=== PATIENT | male | born 1960 | race Caucasian/White ===

== ENCOUNTER → 2022-02-22 06:54 | Outpatient (CLI) | payer BC, SELFPAY ==
[2022-02-22 07:46] LABS: Add Manual Diff / Slide Review NO; Basophils Absolute Auto 0 /uL (0-100); Basophils Percent Auto 0.5 % (0-2); Eosinophils Absolute Auto 100 /uL (0-450); Eosinophils Percent Auto 1.7 % (2-4); Hematocrit 42.9 % (41-53); Hemoglobin 14.9 g/dL (13.5-17.5); Lymphocytes Absolute Auto 3000 /uL (1100-4500); Lymphocytes Percent Auto 45.6 % (25-40); Mean Corpuscular HGB Conc 34.8 % (30-36); Mean Corpuscular Hemoglobin 32.3 PG (26-34); Mean Corpuscular Volume 92.8 fL (80-100); Monocytes Absolute Auto 500 /uL (0-900); Monocytes Percent Auto 7.6 % (3-14); Neutrophils Absolute Auto 2900 /uL (1500-7000); Neutrophils Percent Auto 44.6 % (50-75); Platelet Count 189 X10^3/uL (150-400); Red Blood Cell Count 4.62 X10^6/uL (4.5-5.9); Red Cell Distribution Width 13.1 % (11.6-14.8); White Blood Cell Count 6.5 X10^3/uL (4.5-11.0)
[2022-02-22 09:30] LABS: HEMOLYSIS < 15 (0-50)
[2022-02-22 09:40] LABS: Alanine Aminotransferase 25 IU/L (<50); Albumin 4.2 g/dL (3.5-5.0); Albumin Globulin Ratio 1.6 (1.0-2.8); Alkaline Phosphatase 43 U/L (38-126); Aspartate Aminotransferase 29 IU/L (17-59); Bilirubin Total 0.6 mg/dL (0.2-1.3); Blood Urea Nitrogen 23 mg/dL (9-20); Calcium 8.9 mg/dL (8.4-10.2); Carbon Dioxide 25 mmol/L (22-32); Chloride 104 mmol/L (98-107); Cholesterol 178 mg/dL (140-199); Estimated Glomerular Filt Rate > 60 mL/min (>60); Globulin 2.6 g/dL (1.7-4.1); Glucose 94 mg/dL (80-110); HDL Cholesterol 56 mg/dL (40-60); LDL Cholesterol Calculated 110 mg/dL (<100); Potassium 4.5 mmol/L (3.4-5.1); Sodium 138 mmol/L (137-145); Total Protein 6.8 g/dL (6.3-8.2); Triglycerides 59 mg/dL (35-150)
[2022-02-22 10:04] LABS: Prostate Specific Antigen 5.46 ng/mL (0.10-4.00)
== END ==
PROVIDERS: PCP Family Medicine; Referring Provider Specialist; Visit Provider Specialist
DX: R97.20 Elevated prostate specific antigen [PSA] (principal); I10 Essential (primary) hypertension; E78.5 Hyperlipidemia, unspecified; E78.2 Mixed hyperlipidemia
CPT/HCPCS: 36415; 80053; 80061; 84153; 85025

== ENCOUNTER → 2022-04-25 11:54 | Outpatient (CLI) | payer BC, SELFPAY ==
[2022-04-25 14:00] LABS: Prostate Specific Antigen 4.48 ng/mL (0.10-4.00)
== END ==
PROVIDERS: PCP Family Medicine; Referring Provider Specialist; Visit Provider Specialist
DX: R97.20 Elevated prostate specific antigen [PSA] (principal)
CPT/HCPCS: 36415; 84153

== ENCOUNTER → 2022-06-01 07:02 | Outpatient (CLI) | payer BC, SELFPAY ==
[2022-06-02 07:19] LABS: PSA Free % 27.1 % (.); PSA, Total 4.8 ng/mL (0.0-4.0)
== END ==
PROVIDERS: PCP Family Medicine; Referring Provider Specialist; Visit Provider Specialist
DX: R97.20 Elevated prostate specific antigen [PSA] (principal)
CPT/HCPCS: 36415; 84153; 84154

== ENCOUNTER → 2022-10-31 07:24 | Outpatient (CLI) | payer BC, SELFPAY ==
[2022-10-31 08:39] LABS: Alanine Aminotransferase 22 IU/L (<50); Albumin 4.1 g/dL (3.5-5.0); Albumin Globulin Ratio 1.6 (1.0-2.8); Alkaline Phosphatase 40 U/L (38-126); Aspartate Aminotransferase 22 IU/L (17-59); BUN Creatinine Ratio 15.7 (6-22); Bilirubin Total 0.7 mg/dL (0.2-1.3); Blood Urea Nitrogen 14 mg/dL (9-20); Calcium 9.3 mg/dL (8.4-10.2); Carbon Dioxide 29 mmol/L (22-32); Chloride 102 mmol/L (98-107); Cholesterol 150 mg/dL (140-199); Estimated Glomerular Filt Rate > 60 mL/min (>60); Globulin 2.6 g/dL (1.7-4.1); Glucose 95 mg/dL (80-110); HDL Cholesterol 49 mg/dL (40-60); HEMOLYSIS < 15 (0-50); LDL Cholesterol Calculated 90 mg/dL (<100); Potassium 4.6 mmol/L (3.4-5.1); Sodium 138 mmol/L (137-145); Total Protein 6.7 g/dL (6.3-8.2); Triglycerides 54 mg/dL (35-150)
[2022-10-31 09:03] LABS: Prostate Specific Antigen Scrn 4.41 ng/mL (0.1-4.0)
== END ==
PROVIDERS: PCP Family Medicine; Referring Provider Family Medicine; Visit Provider Family Medicine
DX: E78.2 Mixed hyperlipidemia (principal); R97.20 Elevated prostate specific antigen [PSA]; I10 Essential (primary) hypertension; Z12.5 Encounter for screening for malignant neoplasm of prostate
CPT/HCPCS: 36415; 80053; 80061; G0103

== ENCOUNTER → 2023-02-27 07:18 | Outpatient (CLI) | payer BC, SELFPAY ==
[2023-02-28 10:38] LABS: PSA Free % 28.3 % (.); PSA, Total 3.6 ng/mL (0.0-4.0)
== END ==
PROVIDERS: PCP Family Medicine; Referring Provider Specialist; Visit Provider Specialist
DX: R97.20 Elevated prostate specific antigen [PSA] (principal)
CPT/HCPCS: 36415; 84153; 84154

== ENCOUNTER → 2023-03-21 15:33 | Outpatient (CLI) | payer BC, SELFPAY | PROVIDERS: PCP Family Medicine; Visit Provider Specialist | DX: N40.1 Benign prostatic hyperplasia with lower urinary tract symptoms (principal); N13.8 Other obstructive and reflux uropathy; Z87.898 Personal history of other specified conditions | CPT/HCPCS: 51798; 81002; 87086; 99213 ==

== ENCOUNTER → 2023-09-04 07:05 | Outpatient (CLI) | payer MEDICARE, SELFPAY ==
[2023-09-06 21:49] LABS: PSA Free % 29.6 % (.); PSA, Total 4.5 ng/mL (0.0-4.0)
== END ==
PROVIDERS: PCP Family Medicine; Referring Provider Specialist; Visit Provider Specialist
DX: R97.20 Elevated prostate specific antigen [PSA] (principal)
CPT/HCPCS: 36415; 84153; 84154

== ENCOUNTER → 2023-12-03 06:50 | Outpatient (CLI) | payer MEDICARE, SELFPAY ==
--- NOTE | 2023-12-03 06:50 | DI.ECHO.S_ITS ---
[facility] : : [address] : : [place] : : [id number] : : Phone: [phone] Echocardiogram Report + + :Name: MERRILL LOPEZ Study Date: 12/03/2023 Height: 71 in : :Hospital ReadingLocation: Weight: 220 lb : : Gender: Male BSA: 2.2 m2 : :: 1960 Age: 63 yrs BP: 142/75 mmHg: :Reason For Study: ATHERSCLEROTIC HEART DISEASE : :Ordering Physician: ANDREEA STORM Performed By: Tyson Madrid : :Referring: ANDREEA STORM : + + Interpretation Summary 1. Low normal left ventricular systolic function with ejection fraction of 50 to 55% and no segmental wall motion abnormalities. No left ventricular hypertrophy is identified. Normal diastolic function present. 2. The right ventricular contractility is normal. 3. All cardiac chambers appear to be of normal size. 4. No significant valvular abnormalities are appreciated. 5. No obvious intracardiac shunts noted. 6. No obvious intracardiac masses nor thrombi appreciated. 7. No hemodynamically significant pericardial effusion identified. Conclusion: Low normal left ventricular function with no significant structural abnormalities. Procedure: A two-dimensional transthoracic echocardiogram with color flow and Doppler was performed. The study quality was technically adequate. There is no prior echocardiogram noted for this patient. The patient was in sinus rhythm with heart rates between 52-63 bpm during the exam. Left Ventricle: The left ventricle is normal in size and wall thickness. The ejection fraction is estimated to be 50-55%. Right Ventricle: The right ventricle is grossly normal size. The right ventricular systolic function is normal. Atria: The left atrium grossly appears normal in size. Right atrial size is normal. The interatrial septum grossly appears intact with no obvious evidence for an atrial septal defect. Mitral Valve: The mitral valve is normal in structure and function. There is no mitral valve stenosis. There has been no significant change since the previous study. Aortic Valve: The aortic valve is trileaflet. There is no aortic valve stenosis. No aortic regurgitation is present. Tricuspid Valve: The tricuspid valve is normal in structure and function. There is no tricuspid stenosis. There is trace tricuspid regurgitation. The right ventricular systolic pressure is estimated to be at least 28 mmHg based on an estimated right atrial pressure of 3 mm Hg. Pulmonic Valve: The pulmonic valve is not well seen, but is grossly normal. There is no pulmonic valvular stenosis. There is trace pulmonic regurgitation. Great Vessels: The aortic root is normal size. The dimensions of the ascending aorta are normal. The IVC is of normal diameter and collapses greater than 50% with a sniff. This suggests a low right atrial pressure of 3 mm Hg. Pericardium/ Pleura There is no pericardial effusion. There is no pleural effusion. MMode/2D Measurements & Calculations LVIDd: 5.8 cm LVOT diam: 2.5 cm LVIDs: 4.2 cm Ao root diam: 3.2 cm FS: 27.9 % asc Aorta Diam: 3.6 cm IVSd: 1.0 cm Ao Arch Diam (Prox Trans): 3.0 cm LVPWd: 0.87 cm LV richardson. diameter/BSA (cm/m^2): 2.6 LV sys. diameter/BSA (cm/m^2): 1.9 LA A2 area: 17.9 cm2 RA long axis: 5.1 cm LA A4 area: 23.0 cm2 RA area: 17.8 cm2 LA length (vol): 5.6 cm RA vol: 52.3 ml LA vol: 61.9 ml RA : 23.8 ml/m2 LA vol index: 28.2 ml/m2 IVC diam: 1.9 cm RVD1 (basal): 4.3 cm RVD2 (mid): 3.7 cm TAPSE: 3.2 cm Doppler Measurements & Calculations Ao V2 max: 139.9 cm/sec LVOT Max Dex: 94.2 cm/sec Ao V2 mean: 95.8 cm/sec LV V1 max P.6 mmHg Ao max P.8 mmHg LV V1 VTI: 23.2 cm Ao mean P.2 mmHg CHAPINCITO(I,D): 3.5 cm2 Ao V2 VTI: 32.1 cm CHAPINCITO(V,D): 3.3 cm2 sev ratio: 0.72 CHAPINCITO indexed to BSA (cm^2/m^2): 1.6 MV E max dex: 78.6 cm/sec TR max dex: 253.9 cm/sec MV A max dex: 72.0 cm/sec TR max P.8 mmHg MV E/A: 1.1 PA V2 max: 90.8 cm/sec Med Peak E' Dex: 8.6 cm/sec PA V2 mean: 63.6 cm/sec E/E' med: 9.1 PA mean P.8 mmHg Lat Peak E' Dex: 11.3 cm/sec PA pr(Accel): 32.8 mmHg E/E' lat: 6.9 E/e' average: 8.0 MV dec time: 0.17 sec SV(LVOT): 113.6 ml Reading Physician:
== END ==
LOC: ECHO 06:50
PROVIDERS: PCP Family Medicine; Referring Provider Internal Medicine; Visit Provider Internal Medicine
DX: I25.118 Atherosclerotic heart disease of native coronary artery with other forms of angina pectoris (principal)
CPT/HCPCS: 93306

== ENCOUNTER 2024-02-06 07:42 | Emergency (ER) | payer MEDICARE, SELFPAY ==
[2024-02-06 07:55] VITALS: BP 145/78; PULSE 63; RESP 16; TEMP 36.8; O2SAT 96; BMI 30.7
--- NOTE | 2024-02-06 07:58 | ED.BACK ---
HPI - Back Pain/Injury General Chief Complaint: Back Pain/Injury Stated Complaint: per pt internal pain Time Seen by Provider: 02/06/24 07:53 Source: patient History of Present Illness HPI Narrative: Patient 63-year-old male history of remote history of leukemia hypertension hyperlipidemia presenting today with right flank pain. He reports it has been there for about a week. He denies any sort of injury. He feels like it is deep nonradiating. He denies any pain to his leg or abdomen. No nausea or vomiting. Reports it is in his kidney area. Denies any hematuria or painful frequent urination. Related Data Previous Rx's Medication Instructions Recorded tamsulosin 0.4 mg capsule 0.4 mg PO BEDTIME #90 caps 03/02/23 amlodipine 5 mg-benazepril 20 mg 1 cap PO DAILY #90 caps 04/19/23 capsule atorvastatin 40 mg tablet 40 mg PO BEDTIME #90 tabs 09/07/23 nitroglycerin 0.4 mg sublingual 0.4 mg sublingual Q5M PRN chest 09/07/23 tablet pain #20 tabs tamsulosin 0.4 mg capsule 0.4 mg PO BEDTIME #90 caps 10/24/23 Allergies Allergy/AdvReac Type Severity Reaction Status Date / Time No Known Drug Allergies Allergy Verified 02/06/24 08:00 Patient History Medical History Stable angina pectoris History of elevated PSA BPH w urinary obs/LUTS Hyperlipidemia Carpal tunnel syndrome (~2005) Hypertension (~2002) Leukemia (~2000) Surgical History Anesthesia History of knee replacement (~2019) History of shoulder replacement (~2018) History of knee replacement (~2007) Family History Father History of heart disease Hyperlipidemia Hypertension Mother History of heart disease Social History marital status: household members: spouse occupational status: other leisure activities: exercise Smoking Status: Never smoker alcohol intake: current eating out: 1-3 times/week Type(s) of exercise: walking Smoking Status: Never smoker alcohol intake frequency: a few times a month Substance Use Type: does not use Exam Initial Vital Signs Initial Vital Signs: Vital Signs Temperature 98.3 F 02/06/24 07:55 Pulse Rate 63 02/06/24 07:55 Respiratory Rate 16 02/06/24 07:55 Blood Pressure 145/78 H 02/06/24 07:55 Pulse Oximetry 96 02/06/24 07:55 Oxygen Delivery Method Room Air 02/06/24 07:55 GENERAL: Well-appearing, well-nourished and in no acute distress. HEENT: Head atraumatic,EOMI, pupils reactive, face symmetric, moist mucous membranes CARDIOVASCULAR: Regular rate and rhythm without murmurs, rubs or gallops. RESPIRATORY: Breath sounds equal bilaterally, no wheezes rales or rhonchi. ABDOMEN: Soft, nontender. Normoactive bowel sounds all 4 quadrants. No guarding or rebound. : Mild right CVA tenderness EXTREMITIES: Normal range of motion, no clubbing or edema. Neurovascularly intact NEUROLOGICAL: Alert and oriented x4.Normal gait and speech. SKIN: Warm, dry, no laceration, no petechiae, no rashes or lesions. Course Orders Ordered: ED Orders 02/06/24 07:55 Complete Blood Count AUTO DIFF Stat Comprehensive Metabolic Panel Stat Lipase Stat 02/06/24 09:00 CT kidney ureter bladder (KUB) Stat Vital Signs Vital signs: Vital Signs - 8 hr 02/06/24 07:55 02/06/24 09:01 Temperature 98.3 F Pulse Rate 63 54 L Respiratory Rate 16 16 Blood Pressure 145/78 H 138/82 Pulse Oximetry 96 98 Oxygen Delivery Method Room Air Room Air MDM - Back Pain/Injury Lab Data 02/06/24 07:55 02/06/24 07:55 Labs: Lab Results 02/06/24 Range/Units 07:55 WBC 7.7 (4.5-11.0) X10^3/uL RBC 4.51 (4.5-5.9) X10^6/uL Hgb 14.7 (13.5-17.5) g/dL Hct 42.8 (41-53) % MCV 94.8 (80-100) fL MCH 32.5 (26-34) PG MCHC 34.2 (30-36) % RDW 13.0 (11.6-14.8) % Plt Count 189 (150-400) X10^3/uL Neut % (Auto) 46.9 L (50-75) % Lymph % (Auto) 42.9 H (25-40) % Casey % (Auto) 7.6 (3-14) % Eos % (Auto) 2.1 (2-4) % Baso % (Auto) 0.5 (0-2) % Neut # (Auto) 3600 (2224-9795) /uL Lymph # (Auto) 3300 (2377-0052) /uL Casey # (Auto) 600 (0-900) /uL Eos # (Auto) 200 (0-450) /uL Baso # (Auto) 0 (0-100) /uL Sodium 138 (137-145) mmol/L Potassium 4.3 (3.4-5.1) mmol/L Chloride 106 (98-107) mmol/L Carbon Dioxide 28 (22-32) mmol/L BUN 22 H (9-20) mg/dL Creatinine 0.95 (0.66-1.25) mg/dL Estimated GFR > 60 (>60) mL/min BUN/Creatinine Ratio 23.2 H (6-22) Glucose 105 (80-110) mg/dL Calcium 9.1 (8.4-10.2) mg/dL Total Bilirubin 0.8 (0.2-1.3) mg/dL AST 26 (17-59) IU/L ALT 21 (<50) IU/L Alkaline Phosphatase 43 (38-126) U/L Total Protein 7.3 (6.3-8.2) g/dL Albumin 4.4 (3.5-5.0) g/dL Globulin 2.9 (1.7-4.1) g/dL Albumin/Globulin Ratio 1.5 (1.0-2.8) Lipase 106 (23-300) U/L Urine Dip Bedside Urine Glucose Negative Bedside Urine Bilirubin - Negative Bedside Urine Ketone - Negative Urine Specific Corona 1.010 Bedside Urine Occult Blood - Negative Bedside Urine pH 6.0 Bedside Urine Protein - Negative Bedside Urine Urobilinogen - Negative Bedside Urine Nitrite - Negative Bedside Urine Leukocytes - Negative Esterase Imaging Data CT scan - abdomen/pelvis: Radiologist's Impression: PROCEDURE: CT KIDNEY URETER BLADDER (KUB) INDICATIONS: left flank pain TECHNIQUE: Axial sections were acquired from the lung bases to the pubic symphysis. Coronal and sagittal reformats were performed. For radiation dose reduction, the following was used: automated exposure control, adjustment of mA and/or kV according to patient size. COMPARISON: [facility], CT, KIDNEY/ URETER/BLADDER, 01/15/2015, 9:03. FINDINGS: Image quality: Diagnostic. Lower Chest: No significant findings. URINARY: Right Kidney: No stones or hydronephrosis. Right Ureter: No hydroureter. Left Kidney: No stones or hydronephrosis. Left Ureter: No hydroureter. Bladder: Mild diffuse bladder wall thickening is seen, no discrete bladder wall mass. No calcified bladder stones. ABDOMEN: Liver: No contour-deforming solid mass. There are suggestion of multiple hepatic cysts measures up to 4.3 x 4.4 cm in size in left hepatic lobe and 7.5 Hounsfield unit in density. Gallbladder: No radiopaque gallstones or wall thickening. Biliary ducts: No biliary dilation. Pancreas: No ductal dilation. Spleen: Size is within normal limits. Adrenal Glands: No adrenal nodules. Stomach and Bowel: There is no bowel obstruction. No abnormal bowel wall thickening or mesenteric fat stranding. Sigmoid diverticulosis is seen without CT evidence of acute diverticulitis. No abscess collection. Peritoneum: No abnormal intraperitoneal fluid. No free air. Ventral Wall: No hernia. Abdominal Nodes: No enlarged retroperitoneal or mesenteric lymph nodes. Vessels: Aorta and inferior vena cava are normal in size. PELVIS: Pelvic Organs: Enlarged prostate gland with significant mass effect on floor of urinary bladder is seen. Pelvic Nodes: Unremarkable. Miscellaneous: Right inguinal hernia is noted containing fat only. Bones: No aggressive appearing bony lesions. No acute vertebral body compression fractures. Degenerative disc disease throughout lower thoracic and lumbar spine is seen. IMPRESSION: 1. No obstructing stones or hydronephrosis. No hydroureter. 2. Enlarged prostate gland with mass effect on floor of urinary bladder and mild diffuse bladder wall thickening concerning for chronic outlet obstruction. No calcified bladder stones or discrete bladder wall mass. 3. Extensive sigmoid diverticulosis without evidence of acute diverticulitis. No abscess collection. No free fluid or free air. 4. Multiple hepatic cysts. Dictated by: Karson Storm M.D. on 02/06/2024 at 8:25 Approved by: Karson Storm M.D. on 02/06/2024 at 8:29 [facility] Narrative Medical decision making narrative: Patient 63-year-old male history of leukemia BPH hypertension hyperlipidemia presenting today with about 1 week of right-sided flank pain. It is nonradiating. Really reproducible to touch. He overall appears comfortable. Blood work has been reviewed he has no leukocytosis kidney function is within normal limits no evidence of electrolyte abnormality or elevated bilirubin liver enzymes CT KUB does not show any evidence of kidney stone but does show multiple liver cysts At this time I do not suspect a liver cyst are causing his pain. He is having no evidence of cholecystitis cholelithiasis. No evidence of infection. He is offered something for pain but declines. Encouraged him to follow up with his primary care provider and return if symptoms worsen Discharge Plan Departure Patient Disposition: Home Clinical Impression: Benign liver cyst, Back pain Instructions: DI for Back Strain or Sprain Activity Restrictions/Additional Instructions: *You have been diagnosed with liver cyst and back *What to do: At this time no evidence of kidney stone or infection. You do have multiple liver cysts unlikely to be causing your pain. Nonetheless please follow-up with your primary care provider *Continue to take medications as directed May take Tylenol 650 mg every 4-6 hours if needed for [id number] pain *Follow up with your primary care provider in 2-3 days or call [phone] *Return to ER if you should have increasing pain nausea vomiting weakness fever or any new, worsening or concerning symptoms Prescriptions: No Action tamsulosin 0.4 mg capsule 0.4 mg PO BEDTIME Qty: 90 3RF amlodipine-benazepril 5-20 mg capsule 1 cap PO DAILY Qty: 90 3RF atorvastatin 40 mg tablet 40 mg PO BEDTIME Qty: 90 3RF nitroglycerin 0.4 mg tablet, sublingual 0.4 mg sublingual Q5M PRN (Reason: chest pain) Qty: 20 2RF Rx Instructions: do not exceed 3 doses per episode tamsulosin 0.4 mg capsule 0.4 mg PO BEDTIME Qty: 90 3RF Referrals: Richmond Villarreal DO [Primary Care Provider] - Stand Alone Forms: Patient Portal/API
[2024-02-06 08:03] LABS: Add Manual Diff / Slide Review NO; Basophils Absolute Auto 0 /uL (0-100); Basophils Percent Auto 0.5 % (0-2); Eosinophils Absolute Auto 200 /uL (0-450); Eosinophils Percent Auto 2.1 % (2-4); Hematocrit 42.8 % (41-53); Hemoglobin 14.7 g/dL (13.5-17.5); Lymphocytes Absolute Auto 3300 /uL (1100-4500); Lymphocytes Percent Auto 42.9 % (25-40); Mean Corpuscular HGB Conc 34.2 % (30-36); Mean Corpuscular Hemoglobin 32.5 PG (26-34); Mean Corpuscular Volume 94.8 fL (80-100); Monocytes Absolute Auto 600 /uL (0-900); Monocytes Percent Auto 7.6 % (3-14); Neutrophils Absolute Auto 3600 /uL (1500-7000); Neutrophils Percent Auto 46.9 % (50-75); Platelet Count 189 X10^3/uL (150-400); Red Blood Cell Count 4.51 X10^6/uL (4.5-5.9); White Blood Cell Count 7.7 X10^3/uL (4.5-11.0)
[2024-02-06 08:18] LABS: Alanine Aminotransferase 21 IU/L (<50); Albumin 4.4 g/dL (3.5-5.0); Albumin Globulin Ratio 1.5 (1.0-2.8); Alkaline Phosphatase 43 U/L (38-126); Aspartate Aminotransferase 26 IU/L (17-59); BUN Creatinine Ratio 23.2 (6-22); Bilirubin Total 0.8 mg/dL (0.2-1.3); Blood Urea Nitrogen 22 mg/dL (9-20); Calcium 9.1 mg/dL (8.4-10.2); Carbon Dioxide 28 mmol/L (22-32); Chloride 106 mmol/L (98-107); Estimated Glomerular Filt Rate > 60 mL/min (>60); Globulin 2.9 g/dL (1.7-4.1); Glucose 105 mg/dL (80-110); HEMOLYSIS < 15 (0-50); Lipase 106 U/L (23-300); Potassium 4.3 mmol/L (3.4-5.1); Sodium 138 mmol/L (137-145); Total Protein 7.3 g/dL (6.3-8.2)
--- NOTE | 2024-02-06 09:00 | DI.CT.S_ITS ---
PROCEDURE: CT KIDNEY URETER BLADDER (KUB) INDICATIONS: left flank pain TECHNIQUE: Axial sections were acquired from the lung bases to the pubic symphysis. Coronal and sagittal reformats were performed. For radiation dose reduction, the following was used: automated exposure control, adjustment of mA and/or kV according to patient size. COMPARISON: [facility], CT, KIDNEY/ URETER/BLADDER, 01/15/2015, 9:03. FINDINGS: Image quality: Diagnostic. Lower Chest: No significant findings. URINARY: Right Kidney: No stones or hydronephrosis. Right Ureter: No hydroureter. Left Kidney: No stones or hydronephrosis. Left Ureter: No hydroureter. Bladder: Mild diffuse bladder wall thickening is seen, no discrete bladder wall mass. No calcified bladder stones. ABDOMEN: Liver: No contour-deforming solid mass. There are suggestion of multiple hepatic cysts measures up to 4.3 x 4.4 cm in size in left hepatic lobe and 7.5 Hounsfield unit in density. Gallbladder: No radiopaque gallstones or wall thickening. Biliary ducts: No biliary dilation. Pancreas: No ductal dilation. Spleen: Size is within normal limits. Adrenal Glands: No adrenal nodules. Stomach and Bowel: There is no bowel obstruction. No abnormal bowel wall thickening or mesenteric fat stranding. Sigmoid diverticulosis is seen without CT evidence of acute diverticulitis. No abscess collection. Peritoneum: No abnormal intraperitoneal fluid. No free air. Ventral Wall: No hernia. Abdominal Nodes: No enlarged retroperitoneal or mesenteric lymph nodes. Vessels: Aorta and inferior vena cava are normal in size. PELVIS: Pelvic Organs: Enlarged prostate gland with significant mass effect on floor of urinary bladder is seen. Pelvic Nodes: Unremarkable. Miscellaneous: Right inguinal hernia is noted containing fat only. Bones: No aggressive appearing bony lesions. No acute vertebral body compression fractures. Degenerative disc disease throughout lower thoracic and lumbar spine is seen. IMPRESSION: 1. No obstructing stones or hydronephrosis. No hydroureter. 2. Enlarged prostate gland with mass effect on floor of urinary bladder and mild diffuse bladder wall thickening concerning for chronic outlet obstruction. No calcified bladder stones or discrete bladder wall mass. 3. Extensive sigmoid diverticulosis without evidence of acute diverticulitis. No abscess collection. No free fluid or free air. 4. Multiple hepatic cysts. Dictated by: Karson Storm M.D. on 02/06/2024 at 8:25 Approved by: Karson Storm M.D. on 02/06/2024 at 8:29
[2024-02-06 09:01] VITALS: BP 138/82; PULSE 54; RESP 16; O2SAT 98
== END 2024-02-06 09:02 | disposition home or self-care (01) ==
PROVIDERS: Emergency Provider Emergency Medicine; PCP Family Medicine
DX: K76.89 Other specified diseases of liver (principal); M54.9 Dorsalgia, unspecified
CPT/HCPCS: 36415; 74176; 80053; 81003; 83690; 85025; 99283; 99284

== ENCOUNTER → 2024-04-16 06:49 | Outpatient (CLI) | payer MEDICARE, SELFPAY ==
[2024-04-16 08:20] LABS: Add Manual Diff / Slide Review NO; Basophils Absolute Auto 0 /uL (0-100); Basophils Percent Auto 0.5 % (0-2); Eosinophils Absolute Auto 200 /uL (0-450); Eosinophils Percent Auto 2.3 % (2-4); Hematocrit 41.7 % (41-53); Hemoglobin 14.4 g/dL (13.5-17.5); Lymphocytes Absolute Auto 3200 /uL (1100-4500); Lymphocytes Percent Auto 49.2 % (25-40); Mean Corpuscular HGB Conc 34.6 % (30-36); Mean Corpuscular Hemoglobin 32.9 PG (26-34); Mean Corpuscular Volume 95.3 fL (80-100); Monocytes Absolute Auto 500 /uL (0-900); Monocytes Percent Auto 7.4 % (3-14); Neutrophils Absolute Auto 2700 /uL (1500-7000); Neutrophils Percent Auto 40.6 % (50-75); Platelet Count 171 X10^3/uL (150-400); Red Blood Cell Count 4.38 X10^6/uL (4.5-5.9); Red Cell Distribution Width 12.9 % (11.6-14.8); White Blood Cell Count 6.6 X10^3/uL (4.5-11.0)
[2024-04-16 09:00] LABS: Alanine Aminotransferase 20 IU/L (<50); Albumin 4.2 g/dL (3.5-5.0); Albumin Globulin Ratio 1.8 (1.0-2.8); Alkaline Phosphatase 41 U/L (38-126); Aspartate Aminotransferase 26 IU/L (17-59); BUN Creatinine Ratio 15.7 (6-22); Bilirubin Total 0.8 mg/dL (0.2-1.3); Blood Urea Nitrogen 16 mg/dL (9-20); Calcium 9.8 mg/dL (8.4-10.2); Carbon Dioxide 28 mmol/L (22-32); Chloride 104 mmol/L (98-107); Cholesterol 158 mg/dL (140-199); Estimated Glomerular Filt Rate > 60 mL/min (>60); Globulin 2.3 g/dL (1.7-4.1); Glucose 100 mg/dL (80-110); HDL Cholesterol 54 mg/dL (40-60); HEMOLYSIS < 15 (0-50); LDL Cholesterol Calculated 95 mg/dL (<100); Sodium 138 mmol/L (137-145); Total Protein 6.5 g/dL (6.3-8.2); Triglycerides 45 mg/dL (35-150)
[2024-04-16 09:30] LABS: Prostate Specific Antigen 4.82 ng/mL (0.10-4.00)
[2024-04-17 07:37] LABS: PSA Free % 24.4 % (.); PSA, Total 5.5 ng/mL (0.0-4.0)
== END ==
PROVIDERS: PCP Family Medicine; Referring Provider Urology; Visit Provider Urology
DX: N13.8 Other obstructive and reflux uropathy (principal); I10 Essential (primary) hypertension; N40.1 Benign prostatic hyperplasia with lower urinary tract symptoms; Z87.898 Personal history of other specified conditions; E78.5 Hyperlipidemia, unspecified; R97.20 Elevated prostate specific antigen [PSA]
CPT/HCPCS: 36415; 80053; 80061; 84153; 84154; 85025

== ENCOUNTER → 2024-09-29 07:05 | Outpatient (CLI) | payer MEDICARE, SELFPAY ==
[2024-09-30 07:09] LABS: PSA Free % 26.7 % (.); PSA, Total 7.9 ng/mL (0.0-4.0)
== END ==
PROVIDERS: PCP Family Medicine; Referring Provider Urology; Visit Provider Urology
DX: N40.1 Benign prostatic hyperplasia with lower urinary tract symptoms (principal); N13.8 Other obstructive and reflux uropathy; R97.20 Elevated prostate specific antigen [PSA]
CPT/HCPCS: 36415; 84153; 84154

== ENCOUNTER → 2024-11-19 06:53 | Outpatient (CLI) | payer MEDICARE, SELFPAY ==
[2024-11-20 08:12] LABS: PSA Free % 25.8 % (.)
== END ==
PROVIDERS: PCP Family Medicine; Referring Provider Urology; Visit Provider Urology
DX: R97.20 Elevated prostate specific antigen [PSA] (principal)
CPT/HCPCS: 36415; 84153; 84154

== ENCOUNTER → 2025-04-27 06:45 | Outpatient (CLI) | payer MEDICARE, SELFPAY ==
[2025-04-27 07:57] LABS: Add Manual Diff / Slide Review NO; Hematocrit 44.9 % (41-53); Hemoglobin 15.4 g/dL (13.5-17.5); Lymphocytes Absolute Auto 2900 /uL (1100-4500); Mean Corpuscular HGB Conc 34.2 % (30-36); Mean Corpuscular Hemoglobin 32.0 PG (26-34); Mean Corpuscular Volume 93.6 fL (80-100); Platelet Count 181 X10^3/uL (150-400)
[2025-04-27 08:17] LABS: Alanine Aminotransferase 22 IU/L (<50); Albumin 4.3 g/dL (3.5-5.0); Albumin Globulin Ratio 1.8 (1.0-2.8); Alkaline Phosphatase 43 U/L (38-126); Blood Urea Nitrogen 23 mg/dL (9-20); Calcium 9.5 mg/dL (8.4-10.2); Carbon Dioxide 28 mmol/L (22-32); Chloride 103 mmol/L (98-107); Cholesterol 160 mg/dL (140-199); Estimated Glomerular Filt Rate > 60 mL/min (>60); Globulin 2.4 g/dL (1.7-4.1); Glucose 96 mg/dL (70-99); HDL Cholesterol 55 mg/dL (40-60); HEMOLYSIS < 15 (0-50); Sodium 138 mmol/L (137-145); Total Protein 6.7 g/dL (6.3-8.2); Triglycerides 41 mg/dL (35-150)
[2025-04-27 08:18] LABS: Potassium 5.7 mmol/L (3.4-5.1)
[2025-04-27 08:45] LABS: Prostate Specific Antigen 6.57 ng/mL (0.10-4.00)
[2025-04-27 08:46] LABS: TSH w/ Reflex to FT4 4.55 uIU/mL (0.47-4.68)
== END ==
PROVIDERS: PCP Family Medicine; Referring Provider Urology; Visit Provider Urology
DX: R97.20 Elevated prostate specific antigen [PSA] (principal); E78.2 Mixed hyperlipidemia; N40.1 Benign prostatic hyperplasia with lower urinary tract symptoms; N13.8 Other obstructive and reflux uropathy; I10 Essential (primary) hypertension
CPT/HCPCS: 36415; 80053; 80061; 84153; 84443; 85025

== ENCOUNTER 2025-06-01 06:47 | Emergency (ER) | payer MEDICARE, SELFPAY ==
[2025-06-01] VITALS (10 sets, daily range): BP systolic 123–155; BP diastolic 60–68; PULSE 80–101; RESP 16–25; TEMP 37.1–38.9; O2SAT 94–96; BMI 32.1
--- NOTE | 2025-06-01 07:03 | ED_ITS ---
HPI - General Adult
--- NOTE | 2025-06-01 07:03 | ED.GENADULT ---
HPI - General Adult General Chief complaint: Fever Stated complaint: N/V headache, fever Time Seen by Provider: 06/01/25 06:59 Source: patient, RN notes reviewed and old records reviewed Mode of arrival: Ambulatory Limitations: no limitations History of Present Illness HPI narrative: 64-year-old male history of AML in remission for 25 years, hypertension, dyslipidemia, BPH presents with a complaint of fever, headache and nausea with dry heaves. Patient states no nasal congestion. No chest pain, no shortness of breath he has had nausea but no vomiting. He denies any ear pain or sore throat. Denies any abdominal pain, no back or flank pain, no dysuria urgency or frequency. No black or bloody stools no diarrhea or constipation. No rash or skin changes. He states he has likely had sick contacts he has had travel recently in the past week. States daily medications are an antihypertensive, Flomax and a statin. He has had bilateral knee replacement, right shoulder and a variety of interventions for his AML in his 40s which have all been removed. Denies any drug allergies. No tobacco, alcohol or recreational drugs. Related Data Home Medications ?Medication ?Instructions ?Recorded ?Confirmed amlodipine 2.5 mg-benazepril 10 mg 1 cap PO DAILY 07/11/24 04/30/25 capsule Previous Rx's ?Medication ?Instructions ?Recorded atorvastatin 40 mg tablet 40 mg PO BEDTIME #90 tabs 08/11/24 tamsulosin 0.4 mg capsule 0.8 mg (2 x 0.4 mg) PO DAILY #180 10/14/24 caps levofloxacin 750 mg tablet 750 mg PO DAILY 10 days #10 tabs 06/01/25 Allergies Allergy/AdvReac Type Severity Reaction Status Date / Time No Known Drug Allergies Allergy Verified 06/01/25 06:59 Review of Systems Review of Systems ROS Unobtainable: All systems reviewed & are unremarkable except as noted in HPI and below Patient History Medical History Well adult exam Stable angina pectoris History of elevated PSA BPH w urinary obs/LUTS Hyperlipidemia Carpal tunnel syndrome (~2005) Hypertension (~2002) Leukemia (~2000) Surgical History Anesthesia History of knee replacement (~2019) History of shoulder replacement (~2019) History of knee replacement (~2008) Family History Father History of heart disease Hyperlipidemia Hypertension Mother History of heart disease Social History marital status: household members: spouse occupational status: other leisure activities: exercise Smoking Status: Never smoker alcohol intake: current eating out: 1-3 times/week Type(s) of exercise: walking alcohol intake frequency: a few times a month Exam Narrative Exam Narrative: GEN: well nourished, well appearing may, alert and oriented x [default value], patient appears to be in mild distress. HEENT: Atraumatic, pupils are equal round reactive to light, extraocular movements are intact, nares are clear, there is no conjunctival pallor. Throat is clear without any exudates, erythema, tonsillar enlargement or uvular deviation HEART: Regular rate and rhythm without murmur, clicks, rubs. Pulses are equal in upper and lower extremities LUNGS:Lungs clear to auscultation, no wheezes, rales, crackles, chest moves symmetrically ABD:bowel sounds normal, soft, non-tender, no guarding, rebound, rigidity, no masses noted, no hepatosplenomegaly :No CVA tenderness MSCL: Non-tender, no muscle atrophy, muscles strength 5/5 upper and lower extremities, full range of motion, normal gait NEURO:CN 2-12 intact, sensation normal SKIN: No rash, erythema or other skin changes Initial Vital Signs Initial Vital Signs: Vital Signs Temperature 102.1 F H 06/01/25 06:59 Pulse Rate 101 H 06/01/25 06:59 Respiratory Rate 18 06/01/25 06:59 Blood Pressure 153/68 H 06/01/25 06:59 Pulse Oximetry 95 06/01/25 06:59 Oxygen Delivery Method Room Air 06/01/25 06:59 Course Orders Ordered: ED Orders 06/01/25 08:21 Urine Culture Stat Urine Microscopic Stat 06/01/25 08:57 CT abdomen pelvis w con Stat Discontinued Medications Acetaminophen (Acetaminophen 325 Mg Tablet) 975 mg PO NOW ONE Stop: 06/01/25 07:12 Last Admin: 06/01/25 07:19 Dose: 975 mg Documented By: SGF Sodium Chloride (Normal Saline 0.9%) 1,000 mls @ 1,000 mls/hr IV BOLUS ONE Stop: 06/01/25 08:03 Last Infusion: 06/01/25 08:02 Dose: Infused Documented By: Admin: 06/01/25 07:19 Dose: 1,000 mls/hr Documented By: JERARDO Levofloxacin (Levofloxacin 250 Mg Tablet) 750 mg PO NOW ONE Stop: 06/01/25 08:58 Last Admin: 06/01/25 09:12 Dose: 750 mg Documented By: JERARDO Ondansetron HCl (Ondansetron 4 Mg/2 Ml Inj) 4 mg IV NOW PRN PRN Reason: Nausea And Vomiting Ondansetron HCl (Ondansetron 4 Mg Odt) 4 mg PO NOW PRN PRN Reason: Nausea And Vomiting Ondansetron HCl (Ondansetron 4 Mg/2 Ml Inj) 4 mg IV NOW ONE Stop: 06/01/25 07:28 Last Admin: 06/01/25 07:35 Dose: Not Given Documented By: JERARDO Vital Signs Vital signs: Vital Signs - 8 hr 06/01/25 08:54 06/01/25 08:55 06/01/25 08:55 Temperature Pulse Rate 101 H 94 H Respiratory Rate Blood Pressure 126/63 Pulse Oximetry 96 96 Oxygen Delivery Method 06/01/25 09:00 06/01/25 09:00 06/01/25 09:30 Temperature Pulse Rate 87 83 Respiratory Rate 25 H 18 Blood Pressure 127/65 Pulse Oximetry 94 95 Oxygen Delivery Method 06/01/25 09:30 06/01/25 10:00 06/01/25 10:00 Temperature 98.7 F Pulse Rate 80 Respiratory Rate 16 Blood Pressure 123/63 125/60 Pulse Oximetry 95 Oxygen Delivery Method 06/01/25 10:12 Temperature Pulse Rate Respiratory Rate Blood Pressure Pulse Oximetry Oxygen Delivery Method Room Air Medical Decision Making Lab Data 06/01/25 07:15 06/01/25 07:15 Labs: Lab Results 06/01/25 06/01/25 06/01/25 Range/Units 06:57 07:15 08:21 WBC 11.2 H (4.5-11.0) X10^3/uL RBC 4.79 (4.5-5.9) X10^6/uL Hgb 15.2 (13.5-17.5) g/dL Hct 44.7 (41-53) % MCV 93.2 (80-100) fL MCH 31.6 (26-34) PG MCHC 33.9 (30-36) % RDW 12.8 (11.6-14.8) % Plt Count 155 (150-400) X10^3/uL Neut % (Auto) 86.8 H (50-75) % Lymph % (Auto) 5.8 L (25-40) % [place] % (Auto) 4.1 (3-14) % Eos % (Auto) 1.2 L (2-4) % Baso % (Auto) 2.1 H (0-2) % Neut # (Auto) 9700 H (2147-6367) /uL Lymph # (Auto) 700 L (4519-0512) /uL [place] # (Auto) 500 (0-900) /uL Eos # (Auto) 100 (0-450) /uL Baso # (Auto) 200 H (0-100) /uL PT 11.6 (9.4-12.5) SECONDS INR 1.0 (0.9-1.3) APTT 26 (25.1-36.5) SECONDS Sodium 135 L (137-145) mmol/L Potassium 4.0 (3.4-5.1) mmol/L Chloride 105 (98-107) mmol/L Carbon Dioxide 22 (22-32) mmol/L BUN 21 H (9-20) mg/dL Creatinine 0.92 (0.66-1.25) mg/dL Estimated GFR > 60 (>60) mL/min BUN/Creatinine Ratio 22.8 H (6-22) Glucose 112 H (70-99) mg/dL Lactate 0.8 (0.7-2.1) mmol/L Calcium 9.2 (8.4-10.2) mg/dL Total Bilirubin 1.1 (0.2-1.3) mg/dL AST 26 (17-59) IU/L ALT 24 (<50) IU/L Alkaline Phosphatase 47 (38-126) U/L Total Protein 7.4 (6.3-8.2) g/dL Albumin 4.5 (3.5-5.0) g/dL Globulin 2.9 (1.7-4.1) g/dL Albumin/Globulin Ratio 1.6 (1.0-2.8) Lipase 85 (23-300) U/L Procalcitonin 0.349 (<0.5) ng/mL Urine RBC None seen (0-5/HPF) Urine WBC 1-5/hpf (0-5/HPF) Ur Squamous Epith Cells None seen (0-5/HPF) Urine Bacteria None seen (None) Vol Urine Centrifuged 10ml (spun) SARS-CoV-2 (PCR) Negative (Negative) Influenza A (RT-PCR) Flu a negative (NEGATIVE) Influenza B (RT-PCR) Flu b negative (NEGATIVE) RSV (PCR) Negative (Negative) Urine Dip Bedside Urine Glucose Negative Bedside Urine Bilirubin - Negative Bedside Urine Ketone - Negative Urine Specific [place] 1.015 Bedside Urine Occult Blood +/- Bedside Urine pH 6.0 Bedside Urine Protein - Negative Bedside Urine Urobilinogen - Negative Bedside Urine Nitrite - Negative Bedside Urine Leukocytes + 70 Esterase Point of care testing: Urine Dip Bedside Urine Glucose Negative Bedside Urine Bilirubin - Negative Bedside Urine Ketone - Negative Urine Specific [place] 1.015 Bedside Urine Occult Blood +/- Bedside Urine pH 6.0 Bedside Urine Protein - Negative Bedside Urine Urobilinogen - Negative Bedside Urine Nitrite - Negative Bedside Urine Leukocytes + 70 Esterase ECG Data Attestation: I personally reviewed and interpreted this ECG as follows: Interpretation: Sinus rhythm rate, left axis deviation of 95 ID 146 QRS 88 QTC 442, no acute ST elevation or depression. MDM Narrative Medical decision making narrative: Labs show white count 11.2 hemoglobin of 15 platelets of 155, predominance of neutrophils, basophils are also high, coags are negative, chemistries show a BUN 21 sodium 135 otherwise appropriate glucose is 112, lactate is 0.8 LFTs are normal lipase is 85 procalcitonin 0.349 Chest x-ray no acute cardiopulmonary abnormality EKG shows sinus rhythm left axis deviation. Rate of 95 Urine shows leuks, 1-5 white cells. COVID/RSV/influenza is negative CT abdomen pelvis minimal left perinephric stranding appears new or more prominent compared to CT from 02/06/2024 can indicate mild early pyelonephritis, borderline dilated appendix not significantly changed compared to prior CT from 02/06/2024 although mild acute appendicitis not excluded. Colonic diverticulosis without signs of diverticulitis moderate colonic stool. Prostatomegaly, stable hepatic cyst. Patient received fluids, acetaminophen and Zofran. Patient is started on oral antibiotic for potential renal versus UTI infection. Patient had CT abdomen pelvis added on to evaluate for any kidney stone versus pyelo imaging does confirm what appears to be early pyelonephritis they note borderline dilated appendix but patient has not had any right-sided pain in his not significantly changed from prior. We will continue with the antibiotics and return precautions. Did review all patient's CT finding he is aware of his prostatomegaly. He has follow up this month with Urology here locally with [facility]. Discharge Plan Departure Patient Disposition: Home Clinical Impression: Pyelonephritis Instructions: DI for Kidney Infection Activity Restrictions/Additional Instructions: Your workup today is consistent with a kidney infection or pyelonephritis. Take oral antibiotics until completed. Prescription sent to [facility] in [place]. You can take acetaminophen and/or ibuprofen as needed for fevers. Return if you are having any new or worsening symptoms, new or worsening abdominal back or flank pain, vomiting, any new chest pain or shortness of breath, passing out, difficulty or inability urinate or other new or concerning changes. Prescriptions: New levofloxacin 750 mg tablet 750 mg PO DAILY 10 Days Qty: 10 0RF No Action atorvastatin 40 mg tablet 40 mg PO BEDTIME Qty: 90 3RF amlodipine-benazepril 2.5-10 mg capsule 1 cap PO DAILY tamsulosin 0.4 mg capsule 0.8 mg PO DAILY Qty: 180 3RF Referrals: Richmond Villarreal DO [Primary Care Provider, [facility]] Stand Alone Forms: Patient Portal/API
--- NOTE | 2025-06-01 07:05 | DI.RAD.S_ITS ---
PROCEDURE: XR CHEST 1V
[2025-06-01] MEDS: ACETAMINOPHEN 325 MG TABLET 975 MG PO (07:19)
[2025-06-01] MEDS: SODIUM CHLORIDE 0.9% 1,000 ML 1000 ML IV (07:19)
[2025-06-01 07:28] LABS: Add Manual Diff / Slide Review NO; Hematocrit 44.7 % (41-53); Hemoglobin 15.2 g/dL (13.5-17.5); Lymphocytes Absolute Auto 700 /uL (1100-4500); Mean Corpuscular HGB Conc 33.9 % (30-36); Mean Corpuscular Hemoglobin 31.6 PG (26-34); Mean Corpuscular Volume 93.2 fL (80-100); Platelet Count 155 X10^3/uL (150-400)
--- NOTE | 2025-06-01 07:31 | EKG_ITS ---
[facility]
[2025-06-01 07:33] LABS: INR 1.0 (0.9-1.3); Prothrombin Time 11.6 SECONDS (9.4-12.5)
[2025-06-01 07:36] LABS: PTT Partial Thromboplastin Tim 26 SECONDS (25.1-36.5)
[2025-06-01 07:37] LABS: Alanine Aminotransferase 24 IU/L (<50); Albumin 4.5 g/dL (3.5-5.0); Albumin Globulin Ratio 1.6 (1.0-2.8); Alkaline Phosphatase 47 U/L (38-126); Blood Urea Nitrogen 21 mg/dL (9-20); Calcium 9.2 mg/dL (8.4-10.2); Carbon Dioxide 22 mmol/L (22-32); Chloride 105 mmol/L (98-107); Estimated Glomerular Filt Rate > 60 mL/min (>60); Globulin 2.9 g/dL (1.7-4.1); Glucose 112 mg/dL (70-99); HEMOLYSIS 15 (0-50); Lactate (Lactic Acid) 0.8 mmol/L (0.7-2.1); Lipase 85 U/L (23-300); Potassium 4.0 mmol/L (3.4-5.1); Sodium 135 mmol/L (137-145); Total Protein 7.4 g/dL (6.3-8.2)
[2025-06-01 07:55] LABS: Procalcitonin 0.349 ng/mL (<0.5)
[2025-06-01 08:02] LABS: COVID-19 CEPHEID 4-PLEX PCR Negative (Negative); Influenza A - CEPHEID Flu A NEGATIVE (NEGATIVE); Influenza B - CEPHEID Flu B NEGATIVE (NEGATIVE)
--- NOTE | 2025-06-01 08:57 | DI.CT.S_ITS ---
PROCEDURE: CT ABDOMEN PELVIS W CON
== END 2025-06-01 10:12 | disposition home or self-care (01) ==
PROVIDERS: Emergency Provider Emergency Medicine; PCP Family Medicine
DX: N12 Tubulo-interstitial nephritis, not specified as acute or chronic (principal); R51.9 Headache, unspecified; R11.0 Nausea
CPT/HCPCS: 36415; 71045; 74177; 80053; 81003; 81015; 83605; 83690; 84145; 85025; 85610; 85730; 87040; 87086; 87185; 87637; 93005; 96360; 99284; J7030; Q9967